=== PATIENT | female | born 1955 | race Caucasian/White ===

== ENCOUNTER 2017-06-30 18:23 | Emergency (ER) | payer BC ==
[~2017-06-30] VITALS: Ht 160 cm; Wt 60.6 kg
[~2017-06-30 18:23] MED LIST: AVINZA30 MG; FIORICET 50-301 EACH PO; LUNESTA3 MG; METHOCARBAMOL500 MG; [UNRECOGNIZED DRUG - REMARK]
[2017-06-30 19:03] LABS: HEMATOCRIT 43.4 % (36.0-46.0); HEMOGLOBIN 14.9 G/DL (11.9-15.5); MCH 30.3 PG (29.0-34.0); MCHC 34.3 G/DL (30.0-36.0); MCV 88.4 FL (83-99); PLATELET COUNT 256 K/uL (156-360); RBC DIS.WIDTH-CV 13.4 % (11.8-14.6); RBC DIS.WIDTH-SD 43.5 % (39-53); RED BLOOD COUNT 4.91 M/uL (3.80-5.20)
[2017-06-30 19:16] LABS: CHLORIDE 103 mEq/L (99-109); POTASSIUM 4.2 mEq/L (3.7-5.4); SODIUM 141 mEq/L (136-147)
[2017-06-30 19:18] LABS: GLUCOSE 91 mg/dL (70-99)
[2017-06-30 19:22] LABS: CREATININE 0.8 mg/dL (0.6-1.3); GFR ESTIMATE (CALCULATED) > 59 mL/min/; UREA NITROGEN (BUN) 19 mg/dL (9-23)
[2017-06-30 19:28] VITALS: BP 139/83
== END 2017-06-30 19:31 | disposition left against medical advice (07) ==
LOC: EME 18:23
PROVIDERS: Nurse Practitioner Family
DX: R51 Headache (principal); G43.909 Migraine, unspecified, not intractable, without status migrainosus; F17.200 Nicotine dependence, unspecified, uncomplicated
CPT/HCPCS: 80048; 85027; 99281; 99285; J1200; J1885; J2765; J7030